=== PATIENT | female | born 1935 | race Caucasian/White ===

== ENCOUNTER → 2016-08-19 | Outpatient (CLI) | payer MEDICARE, BC ==
[~2016-08-19] MED LIST: ALPRAZOLAM; ALPRAZOLAM PO; ALPRAZOLAM0.25 MG PO; APAP500 MG PO; ASPIRIN81 M1 PO; CARTIA XT PO; CARTIA XT180 MG PO; CHEWABLE ASPIRI81 MG PO; COZAAR; COZAAR PO; CRESTOR; DEMADEX PO; DILTIAZEM 24HR300 MG PO; DOC-Q-LACE100 MG PO; HCTZ PO; KLOR-CON PO; LEVAQUIN250 MG PO; LEVOTHYROXINE75 MCG PO; LOSARTAN POTASS50 MG PO; NEUTRA PHOS K PO; NORVASC; PLAVIX PO; REMERON; SIMVASTATIN20 MG PO; SYNTHROID; TORSEMIDE10 MG PO
[2016-08-19 10:17] LABS: HEMATOCRIT 39.1 % (35.0-45.0); HEMOGLOBIN 12.4 gm/dL (12.0-16.0); MEAN CELL VOLUME 94.7 FL (83-96); MEAN CORPUSCULAR HEMOGLOBIN 29.9 PG (28-34); MEAN CORPUSCULAR HGB CONC 31.6 g/dL (30-36); MEAN PLATELET VOLUME 8.6 FL (6.5-11.5); RED BLOOD COUNT 4.13 X10e (3.90-5.30); RED CELL DISTRIBUTION WIDTH 13.1 % (11.0-15.5); WHITE BLOOD COUNT 7.8 X10e3 (4.0-10.5)
[2016-08-19 10:55] LABS: BUN/CREATININE RATIO 23.75; CALCIUM SERUM 9.3 mg/dL (8.4-10.2); CREATININE SERUM 1.6 mg/dL (0.6-1.4); GLOM FILT RATE Estimated 30.1 mL/min (>60); POTASSIUM 4.4 mmol/L (3.5-5.1)
== END | disposition home or self-care (01) ==
LOC: CLAB 09:47
PROVIDERS: Internal Medicine Nephrology
DX: N18.3 Chronic kidney disease, stage 3 (moderate) (principal)
CPT/HCPCS: 36415; 80048; 85027